=== PATIENT | male | born 1995 | race Caucasian/White ===

== ENCOUNTER 2017-11-12 07:50 | Emergency (ER) | payer OTHER, SELFPAY ==
[2017-11-12 07:51] VITALS: BP 123/64; PULSE 66; RESP 18; TEMP 37.2; O2SAT 100; BMI 23.0
--- NOTE | 2017-11-12 08:26 | ED.DCSUM_ITS ---
- ER Visit Summary Date of Service: 11/12/17 Chief Complaint: Fever History of Present Illness: The patient is a 21 M who states that 3 days ago he received a meningitis shot. He states that by that evening he began to feel sick. Body aches fever. He developed sore throat nasal congestion ear congestion sputum production. He notes nausea without vomiting. Loose stool yesterday. Mom is been given [place] Cold which is seem to help him. He states that today he is feeling better. The nausea is better. He is able to hear out of his ears now. Physical Examination: Afebrile vital signs are stable Gen: Well-nourished well-developed Head: Normocephalic atraumatic Eyes: Perrl EOMI ENT: TMs clear bilateral turbinate edema with rhinorrhea moist mucous membranes postnasal drip no significant pharyngeal erythema. Patient is without tonsils Neck: Supple no lymphadenopathy no JVD nontender no meningitic signs CVS: Regular rate rhythm no murmurs normal S1-S2 Respiratory: No distress clear to auscultation bilaterally chest nontender Abdomen: Soft nontender nondistended normal bowel sounds no masses Back: Nontender Extremity: Nontender no edema Skin: Normal color no rash Neuro: alert orientated ?3 CN II-XII intact normal strength sensation reflexes gait cerebellar Psych: Normal affect normal mood Emergency Department Course and Treatment: I believe this most likely is a viral syndrome given the nausea slightly loose stool sore throat nasal congestion. Most likely a self-limited illness. Recommend Tylenol ibuprofen rest fluid hydration. I will write for some Zofran should he develop more nausea. Patient is to monitor for rash. He is to monitor for worsening symptoms. If he is still having sore throat and fevers in a week after symptoms began I would recommend a mono test. Impression: 1. Viral syndrome This note was generated with [employer] dictation software. It may contain incorrect words, spelling, and punctuation that were not noted in review of the chart prior to signing ED Disposition - Plan for ED Patient: Disposition: Home or Assisted Living Chief Complaint: General Illness Instructions: ED Viral Syndrome Prescriptions: Ondansetron [Zofran Odt] 4 mg PO Q8H PRN PRN #10 tab PRN Reason: Nausea Ibuprofen [Motrin] 800 mg PO TID PRN PRN #20 tab PRN Reason: Fever Referrals: [facility] [GROUP OF PHYSICIANS] - 3-5 Days if not improving
[2017-11-12 08:42] VITALS: BP 121/57; PULSE 61; RESP 15; O2SAT 98
== END 2017-11-12 08:42 | disposition home or self-care (01) ==
PROVIDERS: Emergency Provider Emergency Medicine
DX: R50.9 Fever, unspecified (principal); B34.9 Viral infection, unspecified; J02.9 Acute pharyngitis, unspecified; R11.0 Nausea; F98.8 Other specified behavioral and emotional disorders with onset usually occurring in childhood and adolescence; Z79.899 Other long term (current) drug therapy
CPT/HCPCS: 99282